=== PATIENT | female | born 1945 ===

== ENCOUNTER 2018-12-05 06:58 | Day surgery (SDC) | payer MEDICARE, SELFPAY ==
[2018-12-03 10:08] VITALS: BMI 34.7
[2018-12-05 07:31] VITALS: RESP 18; O2SAT 99
[2018-12-05] MEDS ORDERED: Propofol 10 mg/ml Inj (20 ML) ONE (09:48)
[2018-12-05] MEDS ORDERED: HYDROmorphone 0.5 mg/0.5 ml ISec IVP PRN (10:11)
[2018-12-05 12:06] VITALS: BP 140/67; PULSE 72; TEMP 97
--- NOTE | 2018-12-05 19:25 | OP ---
PROCEDURE DATE: 12/05/2018 SURGEON: Deedee Neal MD PREOPERATIVE DIAGNOSES: Postmenopausal bleeding and endometrial polyp. POSTOPERATIVE DIAGNOSES: Postmenopausal bleeding and endometrial polyp with submucosal myoma. TYPE OF ANESTHESIA: General LMA. PROCEDURE PERFORMED: Hysteroscopic myomectomy, polypectomy, dilation and curettage. ESTIMATED BLOOD LOSS: 5 mL. BLOOD PRODUCTS: None. COMPLICATIONS: None. SPECIMEN: Endocervical curettings, endometrial curettings, submucosal myoma, endometrial polyp. OPERATIVE FINDINGS: 8 weeks to 10 weeks size uterus, cervical stenosis, bilateral ostia visualized, submucosal mass noted anteriorly along the left cornua and right polypoid tissue along the additional cornua. DESCRIPTION OF PROCEDURE: The patient was taken to the operating room where she was given general anesthesia. Once it was found to be adequate, she was positioned on the operating table in dorsal lithotomy position with the legs supported using stirrups. The patient was prepped and draped in the usual sterile fashion. Time-out was performed, confirmed correct patient and correct procedure. Bimanual exam was performed. Carlton retractor was placed in the anterior and posterior fornix of the vagina. Cervix was adequately visualized. Tenaculum was placed on the anterior lip of the cervix. Endocervical curettings were obtained with [facility] and sent to [facility] on [facility]. The cervix was then sequentially dilated and sounded to 7 cm following this. Uterus was carefully dilated to allow for introduction of the hysteroscope under direct visualization using normal saline as the distention media. The scope was advanced and there was bilateral ostia visualized. Two masses were noted in the cavity, one polyp resembling and one myoma. MyoSure device was then inserted. The masses were then carefully resected. The MyoSure device was then removed. Hysteroscope was removed. Gentle curettage was done. All instruments were removed. There was good hemostasis at the tenaculum puncture site. At the end of the procedure, all needles, sponge, and instrument counts were noted as correct x2. The patient tolerated the procedure well and was transferred to the recovery room in stable condition. Deedee Neal MD
== END 2018-12-05 12:20 | disposition home or self-care (01) ==
LOC: C.SDS 06:58
PROVIDERS: ATTEND Obstetrics & Gynecology
DX: D25.0 Submucous leiomyoma of uterus (principal); N95.0 Postmenopausal bleeding; N84.0 Polyp of corpus uteri
CPT/HCPCS: 58561; 82948; 88305; J2704; J3010

== ENCOUNTER 2019-03-11 09:15 | Outpatient (CLI) | payer MEDICARE, SELFPAY | END 2019-03-11 09:16 | disposition home or self-care (01) | LOC: C.MAMMO 09:15 | DX: Z12.31 Encounter for screening mammogram for malignant neoplasm of breast (principal) ==